=== PATIENT | female | born 1965 | race Caucasian/White ===

== ENCOUNTER 2017-08-24 16:19 | Inpatient (IN) | payer SELFPAY ==
[~2017-08-24] VITALS: Ht 160 cm; Wt 89.8 kg
[2017-08-24] MEDS ORDERED: ONDANSETRON HCL 4MG/2ML VIAL IV STA (16:50)
[2017-08-24] MEDS ORDERED: SODIUM CHLORIDE 0.9% 1000ML BAG (SEPSIS BOLUS) IV ONE (17:00)
[2017-08-24 17:13] LABS: BG CARBOXYHEMOGLOBIN 0.8 % (0.5-1.5); BG DEOXYHEMOGLOBIN 5.7 % (0.0-5.0); BG FRACTION INSPIRED OXYGEN 21; BG HCO3 ACT 19.3 mmol/L (22.0-26.0); BG METHEMOGLOBIN 0.3 % (0.0-1.5); BG OXYGEN SATURATION 94.2 % (92.0-98.5); BG OXYHEMOGLOBIN 93.2 % (94.0-97.0); BG PH 7.471 (7.350-7.450); BG PO2 66.3 mmHg (75.0-100.0); BG SAMPLE SITE LEFT BRACHIAL; BG TOTAL HEMOGLOBIN 13.4 g/dL (12.0-18.0); BG VENT MODE ROOM AIR
[2017-08-24] MEDS ORDERED: INSULIN REGULAR (HUMULIN R) UD 100 UNITS/ML SYR SUBCUT ONE (17:45)
[2017-08-24] MEDS ORDERED: ACETAMINOPHEN 325MG TABLET PO ONE (17:45)
[2017-08-24] MEDS ORDERED: LEVOFLOXACIN 750MG PREMIX 150 ML IV ONE (17:45)
[2017-08-24 18:43] LABS: HEMATOCRIT. 38.7 % (36.0-48.0); MEAN CORPUSCULAR HEMOGLOBIN 30.5 pg (28.0-32.0); MEAN CORPUSCULAR VOLUME 90.9 fL (81.0-99.0); MEAN PLATELET VOLUME 13.1 fl (7.4-10.4); PLATELET 88 x1000/uL (130-400); RED BLOOD CELL COUNT 4.26 mill/uL (4.2-5.4); RED CELL DISTRIBUTION WIDTH 13.2 % (11.6-14.6)
[2017-08-24 18:46] LABS: CHLORIDE 95 mEq/L (98-107)
[2017-08-24 18:49] LABS: PARTIAL THROMBOPLASTIN TIME 33.6 sec (23.4-31.0); PROTHROMBIN TIME 10.3 sec (9.4-11.6)
[2017-08-24 18:50] LABS: HCG SCREEN NEGATIVE
[2017-08-24 18:52] LABS: PHOSPHORUS 1.4 mg/dL (2.5-4.9)
[2017-08-24 18:56] LABS: BETA HYDROXYBUTYRATE 0.2 mMol/L (0.0-0.3)
[2017-08-24 18:58] LABS: PLATELET ESTIMATE DECREASED
[2017-08-24] MEDS ORDERED: INSULIN REGULAR (HUMULIN R) 300UNITS/3ML SUBCUT NR (19:08)
[2017-08-24] MEDS ORDERED: INSULIN REGULAR (HUMULIN R) 300UNITS/3ML SUBCUT ONE (20:30)
[2017-08-24 20:39] LABS: CLARITY URINE CLOUDY (CLEAR); COLOR URINE YELLOW (YELLOW); KETONES URINE NEGATIVE (NEGATIVE); LEUKOCYTE ESTERASE URINE 1+ (NEGATIVE); NITRITE URINE NEGATIVE (NEGATIVE); OCCULT BLOOD URINE 3+ (NEGATIVE); PROTEIN URINE 3+ (NEGATIVE); UROBILINOGEN URINE 0.2 E.U./dL (0.2-1.0)
[2017-08-24 20:50] LABS: *AMPHETAMINES SCREEN URINE NEGATIVE (NEGATIVE); *BARBITURATES SCREEN URINE NEGATIVE (NEGATIVE); *BENZODIAZEPINES SCREEN URINE NEGATIVE (NEGATIVE); *COCAINE SCREEN URINE NEGATIVE (NEGATIVE)
[2017-08-24 20:51] LABS: CANNABINOID URINE SCREEN NEGATIVE (NEGATIVE); METHADONE URINE SCREEN NEGATIVE (NEGATIVE); OPIATES URINE SCREEN NEGATIVE (NEGATIVE); PHENCYCLIDINE URINE SCREEN NEGATIVE (NEGATIVE)
[2017-08-24] MEDS ORDERED: FLUCONAZOLE 100MG TABLET PO ONE (21:30)
[2017-08-24] MEDS ORDERED: NITROGLYCERIN 0.4MG TABLET SL SL PRN (21:45)
[2017-08-24] MEDS ORDERED: IPRATROPIUM/ALBUTEROL 0.5-3(2.5)MG/3ML NEB INH PRN (21:45)
[2017-08-24] MEDS ORDERED: LORAZEPAM 0.5MG TABLET PO PRN (21:45)
[2017-08-24] MEDS ORDERED: GUAIFENESIN 200MG/10ML SUGAR FREE UDC PO PRN (21:45)
[2017-08-24] MEDS ORDERED: CLONIDINE 0.1MG TABLET PO PRN (21:45)
[2017-08-24] MEDS ORDERED: DOCUSATE SODIUM 100MG CAPSULE PO PRN (21:45)
[2017-08-24] MEDS ORDERED: DEXTROSE 50% WATER 50ML SYRINGE IV PRN (21:45)
[2017-08-24] MEDS ORDERED: LEVOFLOXACIN 500MG PREMIX 100 ML IV SCH (21:45)
[2017-08-24] MEDS ORDERED: DIPHENHYDRAMINE 50MG/ML VIAL IV PRN (21:45)
[2017-08-24] MEDS ORDERED: MAGNESIUM/ALUMINUM HYDROXIDE/SIMETHICONE 30ML UDC PO PRN (21:45)
[2017-08-24] MEDS ORDERED: ZOLPIDEM TARTRATE 5MG TABLET PO PRN (22:15)
[2017-08-24] MEDS ORDERED: KETOROLAC 15MG/ML VIAL IV PRN (22:15)
[2017-08-24] MEDS ORDERED: NA PHOS,M-B/NA PHOS,DI-BA ENEMA 118ML PR PRN (22:30)
[2017-08-25] MEDS: ONDANSETRON HCL 4MG/2ML VIAL IV PRN ×3 (00:20→18:34)
[2017-08-25 00:41] LABS: CREATINE KINASE 84 IU/L (26-192)
[2017-08-25 00:42] LABS: CREATINE KINASE MB FRACTION 0.5 ng/mL (0.5-3.6)
[2017-08-25 00:45] VITALS: BP 90/74
[2017-08-25] MEDS ORDERED: POTASSIUM CHLORIDE 20MEQ TABLET SR PO SCH (01:03)
[2017-08-25] MEDS: SODIUM CHLORIDE 0.9% 1,000 ML IV SCH ×3 (01:16→21:56)
[2017-08-25 01:39] VITALS: BP 90/74
[2017-08-25] MEDS ORDERED: CEFTRIAXONE 1 G PREMIX 50 ML IV SCH (03:00)
[2017-08-25] MEDS ORDERED: POTASSIUM PHOS,M-BASIC-D-BASIC 15 MMOL in DEXT 5% WATER 245 ML IV SCH (03:00)
[2017-08-25 04:00] VITALS: BP 116/62
[2017-08-25] MEDS: BLOOD SUGAR DIAGNOSTIC STRIP TEST SCH ×4 (07:40→21:56)
[2017-08-25] MEDS: INSULIN LISPRO 100 UNITS/ML SUBCUT SCH ×7 (07:40→22:00)
[2017-08-25 08:00] VITALS: BP 118/65
[2017-08-25] MEDS ORDERED: ENOXAPARIN 40MG/0.4ML SYR SUBCUT SCH (09:00)
[2017-08-25] MEDS: ENOXAPARIN 30MG/0.3ML SYR SUBCUT SCH ×2 (09:00→21:55)
[2017-08-25] MEDS ORDERED: FAMOTIDINE 20MG TABLET PO SCH (09:00)
[2017-08-25] MEDS: METFORMIN HCL 500MG TABLET PO SCH ×2 (09:01→17:48)
[2017-08-25] MEDS: ASPIRIN 325MG EC TABLET PO SCH (09:02)
[2017-08-25] MEDS: FAMOTIDINE 20MG TABLET PO SCH (09:03)
[2017-08-25] MEDS: AMLODIPINE 10MG TABLET PO SCH (09:03)
[2017-08-25] MEDS: BENAZEPRIL 20MG TABLET PO SCH (09:10)
[2017-08-25 12:00] VITALS: BP 112/62
[2017-08-25] MEDS: METOCLOPRAMIDE HCL 5MG TABLET PO SCH ×3 (13:06→21:48)
[2017-08-25 15:06] LABS: CHLORIDE 102 mEq/L (98-107)
[2017-08-25 15:16] LABS: CREATINE KINASE 76 IU/L (26-192)
[2017-08-25 15:18] LABS: CREATINE KINASE MB FRACTION < 0.5 ng/mL (0.5-3.6)
[2017-08-25 16:00] VITALS: BP 144/86
[2017-08-25 16:49] LABS: BASOPHILS % 0.2 % (0.0-2.0); EOSINOPHILS % 0.3 % (0.0-5.0); HEMOGLOBIN. 11.5 g/dL (12.0-16.0); LYMPHOCYTES % 8.5 % (20.0-50.0); MEAN CORPUSCULAR HEMOGLOBIN 30.4 pg (28.0-32.0); MEAN CORPUSCULAR VOLUME 90.2 fL (81.0-99.0); MEAN PLATELET VOLUME 13.4 fl (7.4-10.4); MONOCYTES % 6.4 % (2.0-8.0); NEUTROPHILS % 84.6 % (40.0-76.0); PLATELET 61 x1000/uL (130-400); RED BLOOD CELL COUNT 3.77 mill/uL (4.2-5.4); RED CELL DISTRIBUTION WIDTH 13.3 % (11.6-14.6)
[2017-08-25] MEDS ORDERED: LEVOFLOXACIN 250MG PREMIX 50 ML IV SCH (19:00)
[2017-08-25] MEDS ORDERED: FLUCONAZOLE 100 MG/50ML BAG 100 MG in BAG 0 EACH IV SCH (22:00)
[2017-08-25] MEDS ORDERED: INSULIN GLARGINE UD 100 UNITS/ML SYR SUBCUT SCH ×2 (22:00)
[2017-08-26] VITALS: BP 129/68
[2017-08-26] MEDS: SODIUM CHLORIDE 0.9% 1,000 ML IV SCH (01:31)
[2017-08-26 04:00] VITALS: BP 127/68
[2017-08-26] MEDS ORDERED: CEFTRIAXONE 1 G PREMIX 50 ML IV SCH (06:00)
[2017-08-26] MEDS: BLOOD SUGAR DIAGNOSTIC STRIP TEST SCH (07:40)
[2017-08-26] MEDS ORDERED: ALPR0.25 MT (07:52)
[2017-08-26] MEDS ORDERED: PROT40 PO (07:54)
[2017-08-26] MEDS ORDERED: ASPI-1159 PO (07:55)
[2017-08-26] MEDS ORDERED: ALBU2.5V13 NEB (07:55)
[2017-08-26 08:00] VITALS: BP 134/76
[2017-08-26] MEDS: INSULIN LISPRO 100 UNITS/ML SUBCUT SCH ×2 (08:10→08:44)
[2017-08-26] MEDS: METOCLOPRAMIDE HCL 5MG TABLET PO SCH (08:26)
[2017-08-26] MEDS: AMLODIPINE 10MG TABLET PO SCH (08:27)
[2017-08-26] MEDS: FAMOTIDINE 20MG TABLET PO SCH (08:27)
[2017-08-26] MEDS: ASPIRIN 325MG EC TABLET PO SCH (08:27)
[2017-08-26] MEDS: METFORMIN HCL 500MG TABLET PO SCH (08:27)
[2017-08-26] MEDS: ENOXAPARIN 30MG/0.3ML SYR SUBCUT SCH (08:31)
[2017-08-26] MEDS: BENAZEPRIL 20MG TABLET PO SCH (08:31)
[2017-08-26 10:32] VITALS: BP 125/79
== END 2017-08-26 12:00 | disposition home or self-care (01) | DRG 720 ==
LOC: ER 16:19 → 7WST 21:19 → ENRESERV 21:56
PROVIDERS: ADMIT Internal Medicine; ATTEND Internal Medicine
DX: A41.51 Sepsis due to Escherichia coli [E. coli] (principal); N17.0 Acute kidney failure with tubular necrosis; E43 Unspecified severe protein-calorie malnutrition; E11.65 Type 2 diabetes mellitus with hyperglycemia; I10 Essential (primary) hypertension; E83.39 Other disorders of phosphorus metabolism; E87.1 Hypo-osmolality and hyponatremia; E87.6 Hypokalemia; J44.9 Chronic obstructive pulmonary disease, unspecified; A41.9 Sepsis, unspecified organism; R65.20 Severe sepsis without septic shock; Z68.35 Body mass index [BMI] 35.0-35.9, adult; Z79.899 Other long term (current) drug therapy
CPT/HCPCS: 36415; 36600; 71045; 74176; 80053; 80061; 80305; 81003; 82010; 82375; 82550; 82553; 82805; 82962; 83036; 83605; 83690; 83735; 83880; 84100; 84484; 84703; 85025; 85610; 85730; 87040; 87077; 87086; 87186; 93005; 93970; 96361; 96365; 96366; 96372; 96375; 99291; J0696; J1450; J1650; J1815; J1956; J2405; J3490; J7030; J7060; J8597